=== PATIENT | female | born 1965 | race Caucasian/White ===

== ENCOUNTER 2018-06-01 11:16 | Emergency (ER) | payer OTHER ==
--- NOTE | 2018-06-01 11:42 | EDPHY ---
H & P Time Seen by Provider: 06/01/18 13:42 HPI/ROS: Chief complaint. Chest pain HPI. 52-year-old female woke with some chest tightness the morning with sense of radiation to left arm. She has been having off and on similar symptoms for 2 months. She is occasionally nauseated and dizzy at night. She occasionally has left arm pain at night. It awakened her 3-4 days ago at that time she had arm pain but no chest pain. Her chest pain is not worse with exertion or deep breathing. She ran on a treadmill 2 days ago without symptoms. No fever cough. No unusual leg pain or swelling. No history of hypertension or diabetes. ROS 10 systems were reviewed and negative with the exception of the elements mentioned in the history of present illness Past Medical/Surgical History: Healthy Family history brother had a CVA at age 43 otherwise no cardiac history Social History: , nonsmoker, no alcohol Smoking Status: Never smoked Physical Exam: General Appearance: Alert pleasant well-developed female mild distress vital signs are stable Eyes: Pupils equal and round no pallor or injection. ENT, Mouth: Mucous membranes are moist. Respiratory: There are no retractions, lungs are clear to auscultation. Cardiovascular: Regular rate and rhythm. Gastrointestinal: Abdomen is soft and nontender, no masses, bowel sounds normal. Neurological: Awake and alert, sensory and motor exams grossly normal. Skin: Warm and dry, no rashes. Musculoskeletal: Neck is supple nontender. Extremities symmetrical, full range of motion. Psychiatric: Patient is oriented X 3, there is no agitation. Constitutional: Initial Vital Signs Temperature (C) 36.7 C 06/01/18 11:19 Heart Rate 61 06/01/18 11:19 Respiratory Rate 18 06/01/18 11:19 Blood Pressure 154/92 H 06/01/18 11:19 O2 Sat (%) 96 06/01/18 11:19 O2 Delivery Mode Room Air Allergies/Adverse Reactions: iodine Allergy (Verified 06/01/18 11:19) Home Medications: Medication Instructions Recorded NK [No Known Home Meds] 06/01/18 Medical Decision Making - Diagnostics EKG Interpretation: EKG interpreted by me shows normal sinus rhythm normal interval and axis. QRS is normal there is no significant ST elevation or depression. No arrhythmia. The rate is 62 Imaging Results: Imaging Impressions Chest X-Ray 06/01/18 11:41 Impression: Clear lungs. Negative portable chest. One-view chest x-ray interpreted by me is normal Procedures: IV normal saline monitor ED Course/Re-evaluation: Re-evaluation 1:30 p.m. Patient is stable. Patient and I discussed imaging, EKG , lab information. We discussed treatment plan including criteria for return importance of follow-up and further evaluation. She expresses understanding and agreement Differential Diagnosis: Heart score is 1 for age. History is not concerning, risk factors none, troponin normal, EKG normal - Data Points Laboratory Results: Laboratory Results 06/01/18 11:35 06/01/18 11:35 06/01/18 06/01/18 06/01/18 11:38 11:35 11:35 WBC RBC Hgb Hct MCV MCH MCHC RDW Plt Count MPV Neut % (Auto) Lymph % (Auto) [place] % (Auto) Eos % (Auto) Baso % (Auto) Nucleat RBC Rel Count Absolute Neuts (auto) Absolute Lymphs (auto) Absolute Monos (auto) Absolute Eos (auto) Absolute Basos (auto) Absolute Nucleated RBC Immature Gran % Immature Gran # D-Dimer 0.29 ug/mLFEU ug/mLFEU (0.00-0.50) Sodium 134 mEq/L L mEq/L (135-145) Potassium 4.4 mEq/L mEq/L (3.5-5.2) Chloride 86 mEq/L L mEq/L (97-110) Carbon Dioxide 23 mEq/l mEq/l (22-31) Anion Gap 25 mEq/L H mEq/L (6-14) BUN 16 mg/dL mg/dL (7-23) Creatinine 0.8 mg/dL mg/dL (0.6-1.0) Estimated GFR > 60 Glucose 95 mg/dL mg/dL (70-100) Calcium 9.6 mg/dL mg/dL (8.5-10.4) POC Troponin I 0.00 ng/mL ng/mL (0.00-0.08) 06/01/18 11:35 WBC 5.43 10^3/uL 10^3/uL (3.80-9.50) RBC 4.47 10^6/uL 10^6/uL (4.18-5.33) Hgb 14.7 g/dL g/dL (12.6-16.3) Hct 41.8 % % (38.0-47.0) MCV 93.5 fL fL (81.5-99.8) MCH 32.9 pg pg (27.9-34.1) MCHC 35.2 g/dL g/dL (32.4-36.7) RDW 11.8 % % (11.5-15.2) Plt Count 259 10^3/uL 10^3/uL (150-400) MPV 9.6 fL fL (8.7-11.7) Neut % (Auto) 50.3 % % (39.3-74.2) Lymph % (Auto) 37.4 % % (15.0-45.0) [place] % (Auto) 11.0 % % (4.5-13.0) Eos % (Auto) 0.7 % % (0.6-7.6) Baso % (Auto) 0.4 % % (0.3-1.7) Nucleat RBC Rel Count 0.0 % % (0.0-0.2) Absolute Neuts (auto) 2.73 10^3/uL 10^3/uL (1.70-6.50) Absolute Lymphs (auto) 2.03 10^3/uL 10^3/uL (1.00-3.00) Absolute Monos (auto) 0.60 10^3/uL 10^3/uL (0.30-0.80) Absolute Eos (auto) 0.04 10^3/uL 10^3/uL (0.03-0.40) Absolute Basos (auto) 0.02 10^3/uL 10^3/uL (0.02-0.10) Absolute Nucleated RBC 0.00 10^3/uL 10^3/uL (0-0.01) Immature Gran % 0.2 % % (0.0-1.1) Immature Gran # 0.01 10^3/uL 10^3/uL (0.00-0.10) D-Dimer Sodium Potassium Chloride Carbon Dioxide Anion Gap BUN Creatinine Estimated GFR Glucose Calcium POC Troponin I Point of Care Test Results: Chemistry 06/01/18 11:38 POC Troponin I 0.00 ng/mL ng/mL (0.00-0.08) Departure - Departure Disposition: Home, Routine, Self-Care Clinical Impression: Chest pain Condition: Good Instructions: Chest Pain (ED) Additional Instructions: Easy activity next few days. Return for worsening chest discomfort or trouble breathing Call Cardiology to arrange follow-up appointment in the next 2-3 days. Referrals: Yamini Cummings MD [Primary Care Provider] - As per Instructions Tab Aguayo MD [Medical Doctor] - 2-3 days, call for appt.
[2018-06-01 11:51] LABS: PLATELET COUNT 259 10^3/uL (150-400)
[2018-06-01 13:35] VITALS: BP 107/70
--- NOTE | 2018-06-01 15:46 | CPEKG ---
Test Reason : OPEN Blood Pressure : / mmHG Vent. Rate : 062 BPM Atrial Rate : 062 BPM P-R Int : 142 ms QRS Dur : 083 ms QT Int : 419 ms P-R-T Axes : 066 072 047 degrees QTc Int : 426 ms Sinus rhythm Confirmed by Farshad Kaye ([id number]) on 06/01/2018 3:46:17 PM Referred By: PHYSICIAN ED Confirmed By:Farshad Kaye
== END 2018-06-01 14:10 | disposition home or self-care (01) ==
DX: R07.9 Chest pain, unspecified (principal)
CPT/HCPCS: 84484-ER